=== PATIENT | female | born 1970 | race Caucasian/White ===

== ENCOUNTER 2024-02-08 14:38 | Emergency (ER) | payer SELFPAY ==
[~2024-02-08] VITALS: Ht 144.8 cm; Wt 54.5 kg
[2024-02-08 15:07] LABS: BASOPHILS # (AUTO) 0.1 X10'3 (0-0.2); EOSINOPHILS # (AUTO) 0.1 X10'3 (0-0.9); EOSINOPHILS % (AUTO) 2.3 % (0-6); HEMATOCRIT 42.8 % (35.0-45.0); HEMOGLOBIN 14.4 g/dl (12.0-16.0); LYMPHOCYTES # (AUTO) 2.2 X10'3 (1.1-4.8); LYMPHOCYTES % (AUTO) 39.5 % (21-51); MEAN CORPUSCULAR HEMOGLOBIN 30.8 PG (27.0-31.0); MEAN CORPUSCULAR HGB CONC 33.6 g/dL (33.0-36.5); MEAN CORPUSCULAR VOLUME 91.8 FL (78-98); MEAN PLATELET VOLUME 7.7 FL (7.4-10.4); MONOCYTES # (AUTO) 0.5 X10'3 (0-0.9); MONOCYTES % (AUTO) 9.4 % (2-12); NEUTROPHILS # (AUTO) 2.6 X10'3 (1.8-7.7); NEUTROPHILS % (AUTO) 47.8 % (42-75); PLATELET COUNT 229 X10'3 (140-440); RED BLOOD COUNT 4.67 X10'6 (4.20-5.60); RED CELL DISTRIBUTION WIDTH 12.6 % (11.5-14.5); WHITE BLOOD COUNT 5.5 X10'3 (4.5-11.0)
[2024-02-08 15:16] LABS: ALBUMIN 3.5 G/DL (3.4-5.0); ANION GAP 9 (8-16); BLOOD UREA NITROGEN 15 MG/DL (7-18); BUN/CREATININE RATIO 21.1 (10.0-20.0); CALCIUM 9.3 MG/DL (8.5-10.1); CHLORIDE 104 MMOL/L (99-107); CREATININE 0.71 MG/DL (0.40-0.90); GLUCOSE 92 MG/DL (70-104); POTASSIUM 3.7 MMOL/L (3.5-5.1); SODIUM 141 MMOL/L (135-145); TOTAL CARBON DIOXIDE 27.9 MMOL/L (24-32); eCRCL 56 ML/MIN; eGFR 86 ML/MIN
[2024-02-08 15:20] LABS: APTT 26 SECONDS (22-32); PROTHROMBIN TIME 10.1 SECONDS (9.0-12.0)
[2024-02-08 15:35] VITALS: TEMP 99.2
[2024-02-08] MEDS ORDERED: iohexol 350MG/ML 100ml bottle IV ONE (15:47)
[2024-02-08] MEDS: hydrALAZINE 20mg/ml inj. IV ONE (15:54)
[2024-02-08] MEDS: LORazepam 1 MG tablet PO ONE (15:55)
[2024-02-08] MEDS: aspirin 81mg tab.chew PO ONE (15:55)
[2024-02-08 17:53] VITALS: BP 157/102; PULSE 100; RESP 23; O2SAT 97
[2024-02-08] MEDS ORDERED: clopidogrel 300mg tablet PO ONE (18:05)
[2024-02-08] MEDS ORDERED: ASPI81TA52 PO (18:07)
[2024-02-08] MEDS ORDERED: CLOP-32 PO (18:07)
[2024-02-08] MEDS ORDERED: PANT40SU2 PO (18:07)
[2024-02-08 18:18] LABS: ETHANOL < 10 MG/DL (<10); MAGNESIUM 2.3 MG/DL (1.5-2.4); PRO BRAIN NATRIURETIC PEPTIDE 52 PG/ML (0-125)
[2024-02-08 18:53] LABS: BILIRUBIN,URINE NEGATIVE (Neg); CLARITY,URINE CLEAR (Clear); COLOR,URINE STRAW (Yellow); GLUCOSE, URINE NEGATIVE (Neg); KETONES,URINE NEGATIVE (Neg); LEUKOCYTE ESTERASE ,URINE NEGATIVE (Neg); NITRITES, URINE NEGATIVE (Neg); OCCULT BLOOD,URINE NEGATIVE (Neg); PH,URINE 6.5 (4.8-8.0); PROTEIN,URINE NEGATIVE (Neg); UROBILINOGEN,URINE 0.2 E.U/dL (0.2-1.0)
[2024-02-08] MEDS: clopidogrel 75mg tablet PO ONE (18:57)
[2024-02-08] MEDS: aspirin 325mg tablet PO ONE (18:58)
[2024-02-08] MEDS: pantoprazole 40mg Tablet.DR PO ONE (18:59)
[2024-02-08] MEDS: ondansetron 4mg rapidly disintigrating tab PO ONE (19:00)
[2024-02-08 19:02] LABS: URINE AMPHETAMINE SCREEN NEGATIVE (Neg); URINE BARBITUATE SCREEN NEGATIVE (Neg); URINE BENZODIAZEPINES SCREEN NEGATIVE (Neg); URINE CANNABINOID SCREEN NEGATIVE (Neg); URINE COCAINE SCREEN NEGATIVE (Neg); URINE METHADONE SCREEN NEGATIVE (Neg); URINE OPIATE SCREEN NEGATIVE (Neg); URINE PHENCYCLIDINE SCREEN NEGATIVE (Neg)
[2024-02-08 19:22] LABS: UA COLLECTION TYPE NON-SPECIFIED
== END 2024-02-08 19:28 | disposition home or self-care (01) ==
LOC: ER 14:39
DX: R20.2 Paresthesia of skin (principal); R51.9 Headache, unspecified; R42 Dizziness and giddiness; I10 Essential (primary) hypertension; I63.9 Cerebral infarction, unspecified; Z79.82 Long term (current) use of aspirin; Z79.899 Other long term (current) drug therapy
CPT/HCPCS: 36415; 70450; 70496; 70498; 71045; 80048; 80305; 80320; 81003; 82948; 83735; 83880; 84484; 85025; 85610; 85730; 86885; 86900; 86901; 93005; 96374; 99285; J0360; J3490; Q9967